=== PATIENT | male | born 1955 | race Caucasian/White ===

== ENCOUNTER 2018-04-21 22:25 | Emergency (ER) | payer BC ==
[~2018-04-21] VITALS: Ht 190.5 cm; Wt 131.5 kg
[2018-04-21 22:40] VITALS: BP 137/88; PULSE 103; RESP 20; TEMP 98.3; O2SAT 95
[2018-04-21] MEDS ORDERED: VITA100021 SL (22:59)
[2018-04-21] MEDS ORDERED: MULT-367 (22:59)
[2018-04-21] MEDS ORDERED: LOSA50TA2 PO (22:59)
[2018-04-21] MEDS ORDERED: MULT1TAB50 (22:59)
[2018-04-21] MEDS ORDERED: VERA1TAB17 PO (22:59)
--- NOTE | 2018-04-21 23:00 | PD ---
HPI Chief Complaint: Edema Time Seen by Provider: 22:45 Travel History International Travel<30 days: No Contact w/Intl Traveler<30days: No Traveled to known affect area: No History of Present Illness HPI The patient is a 63-year-old male who presents to the emergency department for left lower extremity edema and pain. The patient has a history of recent left tibial plateau fracture, nondisplaced, that was treated in a knee immobilizer by his orthopedic surgeon, Dr. Shin. The patient has been doing range of motion exercises, has been bearing weight, however, he noticed left lower extremity edema earlier today. He has pain over the left medial calf , also notes the skin appears tight, shiny, and he has pain. He denies any previous history of DVT and denies any recent hospitalizations, surgery, or prolonged travel. He does take a baby aspirin daily. He denies any numbness or tingling to left lower extremity. He denies any significant redness to left lower extremity. 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 The patient's primary physician is Dr. Benz. Symptoms are moderate. PFSH Past Medical History Cardiovascular Problems: Yes (HTN) Hypertension: Yes Medical other: Yes (TIB PLATAU FX 02/16) ?: Not Social History Alcohol Use: Yes Tobacco Use: No Substance Use: No Allergies-Medications (Allergen,Severity, Reaction): Coded Allergies: No Known Allergies (Unverified , 04/21/18) Reported Meds & Prescriptions Reported Meds & Active Scripts Active Reported Vitamin B-12 (Cyanocobalamin) 1,000 Mcg Subl 1,000 Mcg SL DAILY Centrum Adults Tablet (Multivitamin/Iron/Folic Acid) 18 Mg Iron-400 Mcg Tablet Losartan-Hydrochlorothiazide 50-12.5 Mg Tab 1 Tab PO DAILY Verapamil ER 24 HR (Verapamil HCl) 240 Mg Tab 240 Mg PO HS Review of Systems Except as stated in HPI: all other systems reviewed are Neg General / Constitutional: No: Fever Musculoskeletal: Positive: Edema, Pain Skin: No Rash Neurologic: No: Paresthesia, Sensory Disturbance Physical Exam Narrative GENERAL: Awake, alert, pleasant 63-year-old male who appears his stated age and is in no acute respiratory distress. SKIN: Focused skin assessment warm/dry. HEAD: Atraumatic. Normocephalic. EYES: No injection or drainage. ENT: No nasal bleeding or discharge. Mucous membranes pink and moist. NECK: Trachea midline. No JVD. CARDIOVASCULAR: Regular rate and rhythm. No murmur appreciated. RESPIRATORY: No accessory muscle use. Clear to auscultation. Breath sounds equal bilaterally. MUSCULOSKELETAL: The left lower extremity is larger when compared to the right. Positive dorsalis pedal pulses. Bilateral superficial varicosities of the calves noted. Mild tenderness of the medial aspect of the left calf. He is able to flex the left knee to 90. NEUROLOGICAL: Awake and alert. No obvious cranial nerve deficits. Motor grossly within normal limits. Normal speech. Nonfocal. Sensation is intact bilateral lower extremities. PSYCHIATRIC: Appropriate mood and affect; insight and judgment normal. Data Data Last Documented VS Vital Signs Date Time Temp Pulse Resp B/P (MAP) Pulse Ox O2 Delivery O2 Flow Rate FiO2 04/21/18 22:51 99 Room Air 04/21/18 22:40 98.3 103 20 137/88 (104) Orders Orders Us Leg Venous Doppler (04/21/18 ) Complete Blood Count With Diff (04/21/18 23:28) Basic Metabolic Panel (Bmp) (04/21/18 23:28) Act Partial Throm Time (Ptt) (04/21/18 23:28) Prothrombin Time / Inr (Pt) (04/21/18 23:28) Rivaroxaban (Xarelto) (04/22/18 00:15) Labs Laboratory Tests Test 04/21/18 23:50 White Blood Count 7.7 TH/MM3 Red Blood Count 4.67 MIL/MM3 Hemoglobin 13.9 GM/DL Hematocrit 40.7 % Mean Corpuscular Volume 87.2 FL Mean Corpuscular Hemoglobin 29.9 PG Mean Corpuscular Hemoglobin Concent 34.2 % Red Cell Distribution Width 12.6 % Platelet Count 246 TH/MM3 Mean Platelet Volume 9.5 FL Neutrophils (%) (Auto) 66.4 % Lymphocytes (%) (Auto) 22.8 % Monocytes (%) (Auto) 8.7 % Eosinophils (%) (Auto) 1.6 % Basophils (%) (Auto) 0.5 % Neutrophils # (Auto) 5.1 TH/MM3 Lymphocytes # (Auto) 1.8 TH/MM3 Monocytes # (Auto) 0.7 TH/MM3 Eosinophils # (Auto) 0.1 TH/MM3 Basophils # (Auto) 0.0 TH/MM3 CBC Comment DIFF FINAL Differential Comment Prothrombin Time 10.8 SEC Prothromb Time International Ratio 1.1 RATIO Activated Partial Thromboplast Time 24.7 SEC Blood Urea Nitrogen 16 MG/DL Creatinine 1.20 MG/DL Random Glucose 112 MG/DL Calcium Level 9.1 MG/DL Sodium Level 139 MEQ/L Potassium Level 3.0 MEQ/L Chloride Level 106 MEQ/L Carbon Dioxide Level 25.6 MEQ/L Anion Gap 7 MEQ/L Estimat Glomerular Filtration Rate 61 ML/MIN MDM Medical Decision Making Medical Screen Exam Complete: Yes Emergency Medical Condition: Yes Medical Record Reviewed: Yes Interpretation(s) Last Impressions Lower Extremity Ultrasound 04/21/18 0000 Signed Impressions: Service Date/Time: Saturday, April 21, 2018 23:02 - CONCLUSION: Deep venous thrombosis Fran Pelletier MD Laboratory Tests Test 04/21/18 23:50 White Blood Count 7.7 TH/MM3 Red Blood Count 4.67 MIL/MM3 Hemoglobin 13.9 GM/DL Hematocrit 40.7 % Mean Corpuscular Volume 87.2 FL Mean Corpuscular Hemoglobin 29.9 PG Mean Corpuscular Hemoglobin Concent 34.2 % Red Cell Distribution Width 12.6 % Platelet Count 246 TH/MM3 Mean Platelet Volume 9.5 FL Neutrophils (%) (Auto) 66.4 % Lymphocytes (%) (Auto) 22.8 % Monocytes (%) (Auto) 8.7 % Eosinophils (%) (Auto) 1.6 % Basophils (%) (Auto) 0.5 % Neutrophils # (Auto) 5.1 TH/MM3 Lymphocytes # (Auto) 1.8 TH/MM3 Monocytes # (Auto) 0.7 TH/MM3 Eosinophils # (Auto) 0.1 TH/MM3 Basophils # (Auto) 0.0 TH/MM3 CBC Comment DIFF FINAL Differential Comment Prothrombin Time 10.8 SEC Prothromb Time International Ratio 1.1 RATIO Activated Partial Thromboplast Time 24.7 SEC Blood Urea Nitrogen 16 MG/DL Creatinine 1.20 MG/DL Random Glucose 112 MG/DL Calcium Level 9.1 MG/DL Sodium Level 139 MEQ/L Potassium Level 3.0 MEQ/L Chloride Level 106 MEQ/L Carbon Dioxide Level 25.6 MEQ/L Anion Gap 7 MEQ/L Estimat Glomerular Filtration Rate 61 ML/MIN Differential Diagnosis Differential diagnosis includes DVT, superficial thrombophlebitis, cellulitis, musculoskeletal strain, Watson's cyst. Narrative Course An ultrasound of the left lower extremity was performed. Ultrasound was positive for DVT. Therefore, CBC, PT/PTT/INR, and BMP were sent to lab. The patient was administered Xarelto 15 mg orally 1. Platelets and bleeding times are unremarkable. Potassium is noted to be low at 3.0, was replaced orally. The patient will be placed on Xarelto twice a day and then after 3 weeks he will be placed on Xarelto 20 mg once a day. He is advised to follow-up with his primary physician. He will be provided a copy of his ultrasound results and lab results at discharge. Diagnosis Primary Impression: DVT (deep venous thrombosis) Qualified Codes: I82.432 - Acute embolism and thrombosis of left popliteal vein Patient Instructions: General Instructions Additional Instructions: Xarelto as directed. Please provide the patient a copy of his ultrasound results and lab results at discharge. Follow-up with your primary physician. Return if symptoms worsen or progress. Med/Other Pt SpecificInfo: Prescription(s) given Scripts Rivaroxaban (Xarelto) 20 Mg Tab 20 MG PO DAILY for Blood Clot Prevention for 30 Days, #30 TAB 0 Refills Prov: Wan Acevedo MD 04/22/18 Rivaroxaban (Xarelto) 15 Mg Tab 15 MG PO Q12HR for Blood Clot Prevention for 21 Days, TAB 0 Refills Prov: Wan Acevedo MD 04/22/18 Disposition: 01 DISCHARGE HOME Condition: Stable Wan Acevedo MD April 21, 2018 23:00
--- NOTE | 2018-04-21 23:34 | RADRPT ---
EXAM DATE/TIME: 04/21/2018 23:02 [facility] COMPARISON: No previous studies available for comparison. INDICATIONS : Left lower extremity edema and pain. MEDICAL HISTORY : Hypertension. Recent tibial plateau fracture on February 15, 2018. SURGICAL HISTORY : None. ENCOUNTER: Initial ACUITY: 2 day PAIN SCORE: 4/10 LOCATION: Left leg. TECHNIQUE: Venous ultrasound of the leg was performed from the inguinal ligament to the proximal calf. Real-ana e, color Doppler and spectral tracing, compression and augmentation techniques were used. FINDINGS: There is nonocclusive thrombus in the left popliteal vein which is partially compressible. There is o cclusive thrombus in the left peroneal vein and posterior tibial veins which are noncompressible and demonstrate no waveform. The common femoral and superficial femoral veins are patent. No superficial venous thrombosis is identified. CONCLUSION: Deep venous thrombosis Fran Pelletier MD on April 21, 2018 at 23:31 Board Certified Radiologist. This report was verified electronically.
[2018-04-22 00:02] LABS: AUTOMATED NEUTROPHIL # 5.1 TH/MM3 (1.8-7.7); BASOPHIL % 0.5 % (0.0-2.0); EOSINOPHIL # 0.1 TH/MM3 (0-0.4); EOSINOPHIL % 1.6 % (0.0-4.0); HEMATOCRIT 40.7 % (39.0-51.0); HEMOGLOBIN 13.9 GM/DL (13.0-17.0); LYMPH % 22.8 % (9.0-44.0); LYMPHOCYTE # 1.8 TH/MM3 (1.0-4.8); MEAN CELL VOLUME 87.2 FL (80.0-100.0); MEAN CORPUSCULAR HEMOGLOBIN 29.9 PG (27.0-34.0); MEAN CORPUSCULAR HGB CONC 34.2 % (32.0-36.0); MEAN PLATELET VOLUME 9.5 FL (7.0-11.0); MONO % 8.7 % (0.0-8.0); MONOCYTE # 0.7 TH/MM3 (0-0.9); NEUT % 66.4 % (16.0-70.0); PLATELET COUNT 246 TH/MM3 (150-450); RED BLOOD COUNT 4.67 MIL/MM3 (4.50-5.90); RED CELL DISTRIBUTION WIDTH 12.6 % (11.6-17.2); WHITE BLOOD COUNT 7.7 TH/MM3 (4.0-11.0)
[2018-04-22 00:12] LABS: CALCIUM 9.1 MG/DL (8.5-10.1)
[2018-04-22 00:14] LABS: BICARBONATE 25.6 MEQ/L (21.0-32.0)
[2018-04-22] MEDS ORDERED: RIVAROXABAN 15 MG TAB PO ONE (00:15)
[2018-04-22 00:16] LABS: CREATININE 1.2 MG/DL (0.60-1.30)
[2018-04-22 00:17] LABS: INTERNATIONAL NORMALIZED RATIO 1.1 RATIO; PROTHROMBIN TIME - PATIENT 10.8 SEC (9.8-11.6)
[2018-04-22] MEDS ORDERED: XARE20TA PO (00:25)
[2018-04-22] MEDS ORDERED: XARE15TA PO (00:25)
[2018-04-22] MEDS ORDERED: POTASSIUM CHLORIDE 20 MEQ CONTROLLED RELEASE TAB PO ONE (00:30)
[2018-04-22 01:06] VITALS: BP 147/72
== END 2018-04-22 01:08 | disposition home or self-care (01) ==
LOC: PHED 22:25
DX: I82.432 Acute embolism and thrombosis of left popliteal vein (principal); S82.142D Displaced bicondylar fracture of left tibia, subsequent encounter for closed fracture with routine healing; I83.93 Asymptomatic varicose veins of bilateral lower extremities; I10 Essential (primary) hypertension; X58.XXXD Exposure to other specified factors, subsequent encounter; Z79.82 Long term (current) use of aspirin
CPT/HCPCS: 80048; 85025; 85610; 85730; 93971; 99284